=== PATIENT | female | born 1990 | race Caucasian/White ===

== ENCOUNTER 2017-01-27 11:35 | Outpatient (CLI) | payer OTHER ==
--- NOTE | 2017-01-27 14:13 | DIAGNOSTIC IMAGING REPORT ---
PROCEDURE: US OB 1ST TRIMESTER W/TRANSVAG INDICATION: PELVIC PAIN TECHNIQUE: [place]in scale, color, and spectral Doppler transabdominal and endovaginal sonographic images of the first trimester gravid uterus were obtained. COMPARISON: None. FINDINGS: TRANSABDOMINAL SCANS: The uterus measures 9.5 x 3.9 x 6.4 cm. Single intrauterine gestational sac. Normal right kidney. TRANSVAGINAL SCANS: Yolk sac present. [place]-rump length 9.5 mm, 7 weeks. SARIKA 09/15/2017. Heart rate 131 bpm. There is a perigestational hemorrhage measuring 3.8 x 2.5 x 3.3 cm. IMPRESSION: 1. Single live intrauterine 7 weeks 2. SARIKA 09/15/2017. 3. Perigestational hemorrhage 4. Results discussed with Dr. Sam
--- NOTE | 2017-01-27 14:13 | DIAGNOSTIC IMAGING REPORT ---
PROCEDURE: US OB 1ST TRIMESTER W/TRANSVAG INDICATION: PELVIC PAIN TECHNIQUE: [place] scale, color, and spectral Doppler transabdominal and endovaginal sonographic images of the first trimester gravid uterus were obtained. COMPARISON: None. FINDINGS: TRANSABDOMINAL SCANS: The uterus measures 9.5 x 3.9 x 6.4 cm. Single intrauterine gestational sac. Normal right kidney. TRANSVAGINAL SCANS: Yolk sac present. [place]-rump length 9.5 mm, 7 weeks. SARIKA 09/15/2017. Heart rate 131 bpm. There is a perigestational hemorrhage measuring 3.8 x 2.5 x 3.3 cm. IMPRESSION: 1. Single live intrauterine 7 weeks 2. SARIKA 09/15/2017. 3. Perigestational hemorrhage 4. Results discussed with Dr. Sam
== END 2017-01-27 23:00 ==
LOC: US SRH 11:35
DX: O20.8 Other hemorrhage in early pregnancy (principal); Z3A.01 Less than 8 weeks gestation of pregnancy

== ENCOUNTER 2017-02-28 10:41 | Outpatient (CLI) | payer OTHER ==
--- NOTE | 2017-02-28 11:53 | DIAGNOSTIC IMAGING REPORT ---
PROCEDURE: US OB 1ST TRIMESTER W/TRANSVAG INDICATION: THREATENED TECHNIQUE: [place] scale, color, and spectral Doppler transabdominal sonographic images of the first trimester gravid uterus were obtained. COMPARISON: OB ultrasound 01/27/2017 FINDINGS: TRANSABDOMINAL SCANS: 2.6 x 1.9 x 2.2 cm. perigestational hemorrhage. The cervix is closed. A pole with an average crown-rump length of 5.4 cm is present. Gestational age of 12 weeks and 0 days and estimated due date of 09/12/2017. There is detectable cardiac activity in the fetus in a rate of 164 beats per minute. A yolk sac was visible. IMPRESSION: 1. Single living intrauterine with gestational age of 12 weeks and 0 days and estimated due date of 09/12/2017 2. 2.6 x 1.9 x 2.2 perigestational hemorrhage. Previously measured 3.8 x 2.5 x 3.3 cm
== END 2017-02-28 23:00 | disposition home or self-care (01) ==
LOC: US SRH 10:41
DX: Z3A.12 12 weeks gestation of pregnancy (principal)